=== PATIENT | female | born 1935 | race Hispanic/Latino ===

== ENCOUNTER 2018-03-19 15:53 | Inpatient (IN) | payer BC, MEDICARE, OTHER ==
--- NOTE | 2018-03-19 16:51 | C.PDOC ---
History Of Present Illness 83-year-old female, presents to the emergency department requesting detox from Oxycodone. Patient states she is on the medication for chronic pain and wants to detox from it. She denies fever, nausea/vomiting, or any other associated symptoms. No other complaints at this time. Time Seen by Provider: 03/19/18 16:33 History Per: Patient History/Exam Limitations: no limitations Past Medical History Reviewed: Historical Data, Nursing Documentation, Vital Signs - Medical History PMH: Back Problems Denies: Chronic Kidney Disease Family History: States: No Known Family Hx - Social History Hx Alcohol Use: No Hx Substance Use: No Review Of Systems Constitutional: Negative for: Fever Cardiovascular: Negative for: Chest Pain Respiratory: Negative for: Shortness of Breath Gastrointestinal: Negative for: Nausea, Vomiting Skin: Negative for: Rash Psych: Negative for: Depression, Suicidal ideation Physical Exam - Physical Exam Appears: Non-toxic, No Acute Distress Skin: Warm, Dry, No Rash Head: Atraumatic, Normacephalic Eye(s): bilateral: Normal Inspection Nose: Normal Oral Mucosa: Moist Lips: Normal Appearing Neck: Normal ROM Cardiovascular: Rhythm Regular, No Murmur Respiratory: Normal Breath Sounds, No Accessory Muscle Use Gastrointestinal/Abdominal: Soft, No Tenderness Extremity: Normal ROM, No Deformity Neurological/Psych: Oriented x3, Normal Speech ED Course And Treatment - Laboratory Results Result Diagrams: 03/19/18 17:42 03/19/18 17:42 ECG Rhythm: Atrial Fibrillation Rate From EC O2 Sat by Pulse Oximetry: 94 Pulse Ox Interpretation: Abnormal Medical Decision Making Medical Decision Making: no medical complaint h/lisa afib. medically clear. Disposition - Disposition Disposition: HOSPITALIZED Disposition Time: 19:04 Condition: STABLE - Clinical Impression Clinical Impression: Opiate use, Opiate addiction - Scribe Statement The provider has reviewed the documentation as recorded by the Scribe (Krishna Wiggins) Provider Attestation: All medical record entries made by the Scribe were at my direction and personally dictated by me. I have reviewed the chart and agree that the record accurately reflects my personal performance of the history, physical exam, medical decision making, and the department course for this patient. I have also personally directed, reviewed, and agree with the discharge instructions and disposition. Decision To Admit - Pt Status Changed To: Hospital Disposition Of: Inpatient - Admit Certification Admit to Inpatient:: After my assessment, the patient will require hospitalization for at least two midnights. This is because of the severity of symptoms shown, intensity of services needed, and/or the medical risk in this patient being treated as an outpatient. - InPatient: Physician Admission Certification: I certify that this patient requires 2 or more midnights of care for the following reason:: needs detox - . Bed Request Type: Detox Admitting Physician: Bharathi Michelle Patient Diagnosis: Opiate use, Opiate addiction
[2018-03-19 17:50] LABS: BASO # 0.1 K/uL (0.0-0.2); BASO % 0.9 % (0.0-2.0); EOS # 0.2 K/uL (0.0-0.7); EOS % 1.9 % (0.0-4.0); HEMOGLOBIN 16.3 g/dL (11.0-16.0); LYMPH # 1.7 K/uL (1.0-4.3); LYMPH % 16.6 % (20.0-40.0); MEAN CELL VOLUME 88.5 fL (81.0-99.0); MEAN CORPUSCULAR HEMOGLOBIN 29.5 pg (27.0-31.0); MEAN CORPUSCULAR HGB CONC 33.3 g/dL (33.0-37.0); MEAN PLATELET VOLUME 8.4 fL (7.2-11.7); MONO # 0.6 K/uL (0.0-0.8); MONO % 5.9 % (0.0-10.0); NEUT # 7.8 K/uL (1.8-7.0); NEUT % 74.7 % (50.0-75.0); NRBC % 0.1 % (0.0-2.0); RBC 5.54 Mil/uL (3.80-5.20); RED CELL DISTRIBUTION WIDTH 15.5 % (11.5-14.5); WHITE BLOOD COUNT 10.4 K/uL (4.8-10.8)
[2018-03-19 17:55] LABS: SQUAMOUS EPITHIAL < 1 /hpf (0-5); URINE BILIRUBIN NEGATIVE (NEGATIVE); URINE BLOOD NEGATIVE (NEGATIVE); URINE CLARITY Clear (Clear); URINE COLOR Yellow (YELLOW); URINE GLUCOSE (UA) NORMAL (Normal); URINE LEUKOCYTE ESTERASE NEG Leu/uL (Negative); URINE PROTEIN NEGATIVE (NEGATIVE); URINE UROBILINOGEN NORMAL mg/dL (0.2-1.0)
[2018-03-19 18:08] LABS: BARBITURATES, UR NEGATIVE (NEGATIVE); PHENCYCLIDINE, UR NEGATIVE (NEGATIVE)
[2018-03-19 18:11] LABS: ALB/GLOB RATIO 1.3 (1.0-2.1); ALBUMIN 4.7 g/dL (3.5-5.0); ALT/SGPT 27 U/L (9-52); AST/SGOT 43 U/L (14-36); BLOOD UREA NITROGEN 13 mg/dL (7-17); CALCIUM 9.6 mg/dl (8.6-10.4); GFR NON-AFRICAN AMERICAN > 60
[2018-03-19 18:27] LABS: BENZODIAZEPINES, UR POSITIVE (NEGATIVE); OPIATES, UR POSITIVE (NEGATIVE)
--- NOTE | 2018-03-19 19:31 | PCM.BM ---
<RasheedcemDago ontiveros - Last Filed: 03/19/18 19:30> Treatment Plan Problems - Problems identified on initial assessmt potential for opiate withdrawal Date Initiated: 03/19/18 Time Initiated: 19:31 Status: Active Treatment assets and liabiliti Patient Assests: adapts well Patient Liabilities: substance abuse, medical problems - Milieu Protocol Maintain good personal hygiene: daily Encourage regular showers, daily Remind patient to perform daily oral care, daily Assist patient to perform ADL's Conduct patient checks and document Observation sheet: Q15 minutes Maintain personal safety: every shift Educate patient to report safety concerns to staff, every shift Monitor environment for contraband/sharps Medication safety: Monitor for expected outcome, potential side effects: every shift, Assess barriers to learning: every shift, Assess readiness for medication education: every shift <Bharathi Michelle - Last Filed: 03/20/18 08:41> - Diagnosis (1) Opiate addiction Status: Acute Interventions: 03/20/18 08:41 * Assess 7x/week regarding severity of withdrawal * Educate regarding risks, benefits, side effects and alternatives of medications * Use Motivational Interviewing for abstinence * Use CBT for relapse prevention * Medication management for withdrawal symptoms * Encourage medication assisted treatment * <Jennifer Arevalo - Last Filed: 03/24/18 13:40> Family Contact Family contact name: daughter and granddaughter Family contacted how many times per week?: 4 Family contact comment: "She needs to have a homemaker when she gets out..." - Goals for Treatment Patient goals for treatment: Compete detox and transition to the care of a psychiatrist who will manage her medications. Discharge/Continuing Care - Education Needs Education Needs: Family Medication, Family Diagnosis/Disease Process, Family Community resources (homemaker services), Patient Medication, Patient Diagnosis/Disease Process, Patient Coping Skills, Patient Community resources - Discharge Discharge Criteria: Free of agitation, Normal sleep pattern, No longer exhibiting s/s of withdrawal, Reduction of target symptoms Discharge to:: Home, With Family - Treatment Team Participation Patient/Family/SO Statement: 03/24/18 13:39 "I'm not afraid of living alone. I'm afraid of my medication situation..." Discussed with Family/SO: Yes Was Patient/Family/SO present at Treatment Team Meeting: Yes
[2018-03-19] MEDS ORDERED: Aluminum Hydroxide/Magnesium Hydroxide Susp (30 mL) PO PRN (21:14)
--- NOTE | 2018-03-20 08:41 | PCM.PSYCH ---
Initial Psychiatric Evaluation - Initial Psychiatric Evaluation Type of Admission: Voluntary Legal Status: Capacity Chief Complaint (in patient's own words): "I had to stop my pain meds" History of Present Illness and Precipitating Events: Pt is seen, chart reviewed and case discussed. Agriculture Technician also spoke to her PCP, Dr. Demetrius Stahl, withher permission. Pt is an 83 year old female who lives alone and is in contact with her daughters with a history of chronic pain, sciatica, atrial fibrillation who presented to the ED requesting detox from oxycodone that she was taking for her chronic pain. She reports taking 3 x 30mg oxycodone every day for the last 15 years. She has overused it at times and admits to getting into withdrawals. Her PCP recommended detox and he is thinking about using stronger NSAID or suboxone for her pain. She was getting anxious and suffering from anxiety attacks brought on by withdrawal from oxycodone so has been concurrently taking diazepam 2-4 mg/d. She has never been to detox or rehab in the past. Patient has no previous psychiatric admissions or illnesses. She admits thoughts of wishing to but has no plans; mood is depressed mood, anhedonia, low energy, eating poorly, irritability. She says she has been trying to get a psychiatrist for a long time. Medical hx: Atrial fibrillation, back pain, sciatica Allergy: Denies Surg: Broken tibia, 1x section Hosp: A fib, broken tibia, Fam hx: Denies Current Medications: Active Medications Generic Name Dose Route Start Last Admin Trade Name Freq PRN Reason Stop Dose Admin Al Hydrox/Mg Hydrox/Simethicone 30 ml 03/19/18 21:14 Maalox 30 Ml PO TID PRN Indigestion / Heartburn Apixaban 5 mg 03/20/18 10:00 Eliquis PO BID JOSH Clonidine HCl 0.1 mg 03/19/18 21:14 03/19/18 21:34 Catapres PO 0.1 mg Q8 PRN Administration COWS Score More or Equal to 5 Cyproheptadine HCl 4 mg 03/19/18 21:15 03/19/18 21:34 Periactin PO 4 mg BID JOSH Administration Ibuprofen 600 mg 03/20/18 00:54 03/20/18 01:02 Motrin Tab PO 600 mg Q6 PRN Administration Pain, moderate (4-7) Loperamide HCl 2 mg 03/19/18 21:14 Imodium PO Q8 PRN Diarrhea Mirtazapine 15 mg 03/19/18 22:00 03/19/18 21:34 Remeron PO 15 mg HS JOSH Administration Ondansetron HCl 4 mg 03/19/18 21:14 Zofran Tab PO Q8 PRN Nausea/Vomiting Past Psychiatric History - Past Psychiatric History Previous Treatment History: Intensive Outpatient Pertinent Medical Hx (Current Medical&Sleep Prob, Allergies): Allergies Allergy/AdvReac Type Severity Reaction Status Date / Time No Known Allergies Allergy Verified 01/31/15 17:00 Apixaban [Eliquis] 5 mg PO BID 03/19/18 Cyproheptadine [Cyproheptadine Hydrochloride] 4 mg PO BID 03/19/18 Metoprolol Tartrate 50 mg PO BID 03/19/18 Mirtazapine [Remeron] 15 mg PO DAILY 03/19/18 Oxycodone HCl [Oxycontin] 60 mg PO BID 03/19/18 Vit B12/Folic Acid/B6/Aa15 [Glycotrol Capsule] 1 each PO DAILY 03/19/18 Vit D3-Vit K/Berberine/Hops [Ostera Tablet] 1 each PO DAILY 03/19/18 Review of Systems - Neurological Neurological: Memory Loss, Tremor, Weakness - Psychiatric Psychiatric: Abnormal Sleep Pattern, Anhedonia, Anxiety, Depression, Difficulty Concentrating. absent: Hallucinations, Homicidal Ideation, Irritability, Paranoia, Suicidal Ideation Mental Status Examination - Personal Presentation Personal Presentation: Looks stated age - Affect Affect: Constricted - Motor Activity Motor Activity: Calm - Reliability in Providing Information Reliability in Providing Information: Good - Speech Speech: Organized - Mood Mood: Depressed, Anxious - Formal Thought Process Formal Thought Process: No Impairment - Cognitive Functions Orientation: Person, Place, Situation, Time Sensorium: Alert Attention/Concentration: Easily distracted Estimate of Intelligence: Average Judgement: Intact, as evidence by: Insight regarding need for hospitalization Memory: Recent intact, as evidence by: Ability to recall events of the day, Remote impaired as evidenced by: Inability to recall sig life events - Risk Risk: Withdrawal, Diminished functioning - Strength & Assets Inventory Strength & Assets Inventory: Family support, Cooperative - Limitations Limitations: Living alone, Other DSM 5 DX - DSM 5 DSM 5 Diagnosis: Opioid withdrawal opioid use d/o - severe Depressive d/o - unspecified MADHURI - Recommended/Plan of Treatment Treatment Recommendations and Plan of Treatment: Taper with methadone Gabapentin for augmentation: pain and anxiety Remeron for depression and insomnia As needed medications All risks, benefits and alternatives of the meds discussed, and the pt agreed and understood. Attend groups and activities Supportive therapy and psychoeducation DC for abstinence CBT for relapse prevention Encourage MAT Refer to rehab or IOP, and self-help groups Teach healthy lifestyle methods, i.e. diet, exercise, meditation 33 min Projected ELOS: 4-5 days Prognosis: good w treatment
--- NOTE | 2018-03-20 21:42 | CARD ---
APPROVED REPORT Date of service: 03/19/2018 EKG Measurement Heart [id number] <Conclusion> Atrial fibrillation with rapid ventricular response with premature ventricular or aberrantly conducted complexes Anteroseptal infarct, age undetermined Abnormal ECG
--- NOTE | 2018-03-21 14:41 | PCM.PYCHPN ---
Psychiatric Progress Note - Psychiatric Progress Note Patient seen today, length of contact: 18 min Patient Chief Complaint: "I have pain" Problems Identified/Issues Discussed: The pt is seen, chart reviewed, case discussed with staff. The pt is compliant with medications and reports no side-effects. Symptoms are improving but needs more time to stabilize. She is very anxious and c/o back pain despite meds Reassurance given with good effect. Her anxiety is triggering her pain a lot Support given, psycho-education provided. After care discussed. She will return to her PCP and get safe pain-killers Medication Change: Yes (detox changes daily) Medical Record Reviewed: Yes Mental Status Examination - Cognitive Function Orientation: Person, Place, Situation, Time Memory: Intact Attention: Poor Concentration: Poor Association: WNL Fund of Knowledge: WNL - Mood Mood: Depressed, Anxious - Affect Affect: Constricted - Speech Speech: Appropriate - Formal Thought Process Formal Thought Process: No Impairment - Suicidal Ideation Suicidal Ideation: No - Homicidal Ideation Homicidal Ideation: No Goal/Treatment Plan - Goal/Treatment Plan Need for Continued Stay: Discharge may exacerbated symptoms, Severe functional impairment Progress Toward Problem(s) and Goals/Treatment Plan: Taper with methadone Add valium for severe anxiety and muscle spasms Gabapentin for augmentation: pain and anxiety Remeron for depression and insomnia As needed medications All risks, benefits and alternatives of the meds discussed, and the pt agreed and understood. Attend groups and activities Supportive therapy and psychoeducation DC for abstinence CBT for relapse prevention Encourage MAT Refer to rehab or IOP, and self-help groups Teach healthy lifestyle methods, i.e. diet, exercise, meditation Estimated Date of D/C: 03/24/18
--- NOTE | 2018-03-22 21:58 | CP.PCM.CON ---
<Rosalie Junior - Last Filed: 03/22/18 21:37> History of Present Illness - History of Present Illness History of Present Illness: PGY-1 Medicine Consult Note for Dr. Roach Ms. Hogan is a 83 year old female PMH Afib on Eliquis, hypertension, chronic back pain, glaucoma admitted for detox from chronic oxycodone use. Medicine was consulted for incidental oxygen desaturation on vitals check. Throughout stay, oxygen saturation has fluctuated and dropped as low as 93% on room air. We were consulted since patient dropped to 90%. Patient states no change after being placed on 2L NC. Patient has no complaints, but does note she gets short of breath on a near daily basis in conjunction with her panic attacks. She works herself up worrying that her medications are ineffective, which causes her to become overwhelmed and have anxiety. She has had two recent medication changes two weeks ago by her PMD: diazepam 2-4mg po daily prn for anxiety and cyproheptadine 4mg po HS for loss of appetite. She cannot recognize if she has had any change in weight over the last few weeks. She states that she's also extremely lonely since her 's . She's in the process of making her daughter Mylene her power of traffic law attorney and doesn't feel comfortable making decisions of any kind, including medical. Denies fever, chills, cough, shortness of breath, wheeze, sick contacts. PMH: Afib on Eliquis, HTN, chronic back pain, glaucoma, anxiety Meds: Eliquis, Lopressor, Oxycodone 3x30mg/d [id number], Diazepam, Cyproheptadine All: NKDA FamHx: Tobacco on both sides, denies asthma/COPD/Lung CA SocHx: Quit Tobacco 12 years ago, smoked 1/2 ppd. Denies EtOH, drug use aside from oxycodone SxHx: Broken Tibia repair, Full Code Review of Systems - Constitutional Constitutional: Lethargy, Malaise, Weakness. absent: Chills, Fever, Headache, Night Sweats, Sleep Apnea - EENT Eyes: absent: Blurred Vision, Diplopia, Loss of Vision Ears: absent: Decreased Hearing, Tinnitus, Disequilibrium Nose/Mouth/Throat: absent: Dysphagia, Hoarsness, Odynophagia - Cardiovascular Cardiovascular: absent: Chest Pain, Dyspnea, Irregular Heart Rhythm, Palpitations - Respiratory Respiratory: absent: Cough, Dyspnea, Wheezing, Chest Congestion - Gastrointestinal Gastrointestinal: absent: Constipation, Dysphagia, Heartburn, Nausea, O dynophagia, Vomiting - Genitourinary Genitourinary: absent: Dysuria, Urinary Frequency, Urinary Hesitance, Urinary Urgency - Musculoskeletal Musculoskeletal: Back Pain. absent: Neck Pain, Numbness, Stiffness, Tingling - Integumentary Integumentary: absent: Bleeding Lesions, Pruritus, Rash, Sores - Neurological Neurological: Weakness. absent: Dizziness, Focal Weakness - Psychiatric Psychiatric: Change in Appetite, Panic Attacks. absent: Hallucinations, Mood Swings - Endocrine Endocrine: Fatigue. absent: Excessive Sweating, Palpitations - Hematologic/Lymphatic Hematologic: absent: Easy Bleeding, Easy Bruising Past Patient History - Past Medical History & Family History Past Medical History?: Yes Past Family History: Reviewed and not pertinent - Past Social History Smoking Status: Former Smoker Alcohol: None Drugs: Prescription medications - CARDIAC Hx Hypertension: Yes - PULMONARY Hx Tuberculosis: No - NEUROLOGICAL HX Cerebrovascular Accident: No Hx Seizures: No - HEENT Hx Cataracts: Yes Hx Glaucoma: Yes - RENAL Hx Chronic Kidney Disease: No - ENDOCRINE/METABOLIC Hx Endocrine Disorders: No - HEMATOLOGICAL/ONCOLOGICAL Hx Blood Disorders: No - INTEGUMENTARY Hx Dermatological Problems: No - MUSCULOSKELETAL/RHEUMATOLOGICAL Hx Back Pain: Yes Hx Falls: Yes Hx Unsteady Gait: Yes - GENITOURINARY/GYNECOLOGICAL Hx Sexually Transmitted Disorders: No - PSYCHIATRIC Hx Substance Use: Yes - SURGICAL HISTORY Hx Section: Yes Hx Orthopedic Surgery: Yes - ANESTHESIA Hx Anesthesia: Yes Hx Anesthesia Reactions: No Hx Malignant Hyperthermia: No Meds Allergies/Adverse Reactions: Allergies Allergy/AdvReac Type Severity Reaction Status Date / Time No Known Allergies Allergy Verified 01/31/15 17:00 - Medications Medications: Current Medications Acetaminophen (Tylenol 325mg Tab) 325 mg PO Q6 PRN PRN Reason: Pain, moderate (4-7) Last Admin: 03/22/18 10:41 Dose: 325 mg Al Hydrox/Mg Hydrox/Simethicone (Maalox 30 Ml) 30 ml PO TID PRN PRN Reason: Indigestion / Heartburn Apixaban (Eliquis) 5 mg PO BID JOSH Last Admin: 03/22/18 17:20 Dose: 5 mg Clonidine HCl (Catapres) 0.1 mg PO Q8 PRN PRN Reason: COWS Score More or Equal to 5 Last Admin: 03/22/18 04:44 Dose: 0.1 mg Cyclobenzaprine HCl (Flexeril) 5 mg PO BID [facility] Last Admin: 03/22/18 17:19 Dose: 5 mg Cyproheptadine HCl (Periactin) 4 mg PO HS [facility] Last Admin: 03/22/18 21:20 Dose: 4 mg Diazepam (Valium) 5 mg PO QPM [facility] Last Admin: 03/22/18 17:20 Dose: 5 mg Gabapentin (Neurontin) 100 mg PO BID [facility] Last Admin: 03/22/18 17:20 Dose: 100 mg Ibuprofen (Motrin Tab) 600 mg PO Q6 PRN PRN Reason: Pain, moderate (4-7) Last Admin: 03/22/18 05:32 Dose: 600 mg Loperamide HCl (Imodium) 2 mg PO Q8 PRN PRN Reason: Diarrhea Methadone HCl (Methadone) 10 mg PO Q24H [facility]; Taper Stop: 03/25/18 09:59 Last Admin: 03/22/18 09:03 Dose: 10 mg Metoprolol Tartrate (Lopressor) 50 mg PO BID [facility] Last Admin: 03/22/18 17:20 Dose: 50 mg Mirtazapine (Remeron) 15 mg PO [facility] Last Admin: 03/22/18 21:20 Dose: 15 mg Ondansetron HCl (Zofran Tab) 4 mg PO Q8 PRN PRN Reason: Nausea/Vomiting Physical Exam - Constitutional Appears: Well, No Acute Distress, Chronically Ill - Head Exam Head Exam: ATRAUMATIC, NORMOCEPHALIC - Eye Exam Eye Exam: EOMI, PERRL Pupil Exam: NORMAL ACCOMODATION - ENT Exam ENT Exam: Mucous Membranes Dry, Normal Exam - Respiratory Exam Respiratory Exam: Clear to Auscultation Bilateral, NORMAL BREATHING PATTERN. absent: Accessory Muscle Use, Decreased Breath Sounds, Rales, Rhonchi, Wheezes Additional comments: 2L O2 NC patient is taking shallow breaths while in position. When she relaxes and takes deep breaths, her saturation reading improves - Cardiovascular Exam Cardiovascular Exam: +S1, +S2. absent: Gallop, Rubs, Systolic Murmur - GI/Abdominal Exam GI & Abdominal Exam: Normal Bowel Sounds, Soft. absent: Tenderness - Extremities Exam Extremities exam: Positive for: normal capillary refill, pedal pulses present. Negative for: calf tenderness, pedal edema, tenderness Additional comments: warm to touch peripheral pulses palpable bilaterally (radial, PT) - Neurological Exam Neurological exam: Alert, Oriented x3, Reflexes Normal Additional comments: brachioradialis, patellar reflexes normal - Psychiatric Exam Psychiatric exam: Depressed - Skin Skin Exam: Dry, Intact, Normal Color, Warm Results - Vital Signs Recent Vital Signs: Last Vital Signs Temp 97.7 F 03/22/18 20:39 Pulse 70 03/22/18 20:39 Resp 20 03/22/18 20:39 BP 110/70 03/22/18 20:39 Pulse Ox 93 L 03/22/18 21:15 - Labs Result Diagrams: 03/19/18 17:42 03/19/18 17:42 Assessment & Plan - Assessment and Plan (Free Text) Assessment: 83yo F PMH Afib on Eliquis, chronic back pain on oxycodone, anxiety admitted to detox from oxycodone consulted for decreased oxygen saturation. Plan: Decreased Oxygen Saturation - patient is asymptomatic and has no complaints - f/u CXR - continue O2 via NC. Titrate to saturation >93%, so far at 2L - incentive spirometry q2h to increase lung volume - will sign off if CXR negative, please reconsult as necessary d/w Dr. Marley Junior - Date & Time Date: 03/22/18 Time: 21:30 <Ritesh Roach - Last Filed: 03/23/18 06:04> Meds - Medications Medications: Current Medications Acetaminophen (Tylenol 325mg Tab) 325 mg PO Q6 PRN PRN Reason: Pain, moderate (4-7) Last Admin: 03/23/18 03:48 Dose: 325 mg Al Hydrox/Mg Hydrox/Simethicone (Maalox 30 Ml) 30 ml PO TID PRN PRN Reason: Indigestion / Heartburn Apixaban (Eliquis) 5 mg PO BID JOSH Last Admin: 03/22/18 17:20 Dose: 5 mg Clonidine HCl (Catapres) 0.1 mg PO Q8 PRN PRN Reason: COWS Score More or Equal to 5 Last Admin: 03/22/18 04:44 Dose: 0.1 mg Cyclobenzaprine HCl (Flexeril) 5 mg PO BID [facility] Last Admin: 03/22/18 17:19 Dose: 5 mg Cyproheptadine HCl (Periactin) 4 mg PO HS [facility] Last Admin: 03/22/18 21:20 Dose: 4 mg Diazepam (Valium) 5 mg PO QPM [facility] Last Admin: 03/22/18 17:20 Dose: 5 mg Gabapentin (Neurontin) 100 mg PO BID [facility] Last Admin: 03/22/18 17:20 Dose: 100 mg Ibuprofen (Motrin Tab) 600 mg PO Q6 PRN PRN Reason: Pain, moderate (4-7) Last Admin: 03/23/18 02:35 Dose: 600 mg Loperamide HCl (Imodium) 2 mg PO Q8 PRN PRN Reason: Diarrhea Methadone HCl (Methadone) 10 mg PO Q24H [facility]; Taper Stop: 03/25/18 09:59 Last Admin: 03/22/18 09:03 Dose: 10 mg Metoprolol Tartrate (Lopressor) 50 mg PO BID [facility] Last Admin: 03/22/18 17:20 Dose: 50 mg Mirtazapine (Remeron) 15 mg PO HS [facility] Last Admin: 03/22/18 21:20 Dose: 15 mg Ondansetron HCl (Zofran Tab) 4 mg PO Q8 PRN PRN Reason: Nausea/Vomiting Results - Vital Signs Recent Vital Signs: Last Vital Signs Temp 98.2 F 03/23/18 05:40 Pulse 73 03/23/18 05:40 Resp 18 03/23/18 05:40 BP 139/82 03/23/18 05:40 Pulse Ox 95 03/23/18 05:40 - Labs Result Diagrams: 03/19/18 17:42 03/19/18 17:42 Assessment & Plan - Date & Time Date: 03/23/18 (I have seen and examined the patient. I agree with the findings and plan of care as documented by Dr. Junior. Patient in detox. Called to consult due oxygen desaturation at 90%. Responded well to oxygen via nasal canula. Stat CXR. Will follow up and adjust treatment if positive for signs and symptoms of CHF. Monitor for acute changes.) Time: 06:02 Attending/Attestation - Attestation I have personally seen and examined this patient.: Yes I have fully participated in the care of the patient.: Yes I have reviewed all pertinent clinical information: Yes
--- NOTE | 2018-03-23 15:44 | RAD ---
Date of service: 03/22/2018 HISTORY: SOB COMPARISON: No prior. FINDINGS: LUNGS: There appears to be very mild pulmonary venous congestive changes (questionably chronic compensated pulmonary edema/CHF). Elevation right hemidiaphragm with right basilar atelectasis. There may be underlying eventration right hemidiaphragm. PLEURA: No significant pleural effusion identified, no pneumothorax apparent. CARDIOVASCULAR: Mild aortic atherosclerotic calcification present. . Cardiomegaly OSSEOUS STRUCTURES: No significant abnormalities. VISUALIZED UPPER ABDOMEN: Normal. OTHER FINDINGS: None. IMPRESSION: Mild pulmonary venous congestive changes (questionably chronic compensated pulmonary edema/CHF). Elevation right hemidiaphragm with right basilar atelectasis. There may be underlying eventration right hemidiaphragm.
--- NOTE | 2018-03-23 20:00 | PCM.PYCHPN ---
Psychiatric Progress Note - Psychiatric Progress Note Patient seen today, length of contact: 18 min Patient Chief Complaint: I AM IN SO NUCH PAIN PT WAS SEEN AND EXAMINED SISCUSSED WITH STAFRF. A NSAID WAS CONSIDERED BUT PT IS ON ELIQUIS Problems Identified/Issues Discussed: SEE ABOVE Medical Problems: NOTHING ACUTE Diagnostic Results: REVIEWED DSM 5 Symptoms Update: ANHEDONIA ANERGY Medication Change: Yes (detox changes daily) Medical Record Reviewed: Yes Mental Status Examination - Cognitive Function Orientation: Person, Place, Situation Memory: Intact Attention: Poor Concentration: Poor Association: WNL Fund of Knowledge: WNL - Mood Mood: Depressed, Anxious - Speech Speech: Appropriate - Formal Thought Process Formal Thought Process: No Impairment - Suicidal Ideation Suicidal Ideation: No - Homicidal Ideation Homicidal Ideation: No Goal/Treatment Plan - Goal/Treatment Plan Need for Continued Stay: Remain at risks for inpatient hospitalization, Discharge may exacerbated symptoms, Severe functional impairment Progress Toward Problem(s) and Goals/Treatment Plan: OPIOID WITHDRAWAL;METHADONE TAPER OPIOID USE DISORDER CBT CO GROUP MILIEU AND RECREATIONAL THERAPY MADHURI VISTARIL WAS CONSIDERED Estimated Date of D/C: 03/24/18 - Smoking Cessation Smoking Cessation Initiated: No
--- NOTE | 2018-03-23 20:08 | PCM.PYCHPN ---
Psychiatric Progress Note - Psychiatric Progress Note Patient seen today, length of contact: 18 min Patient Chief Complaint: IF I GO HOME FEELING LIKE THIS I DON'T CARE WHO IS WITH ME I CANNOT DO THIS PT WAS SEEN AND EXAMINED DISCUSSED WITH STAFF PT IS EXTREMELY ANXIOUS Problems Identified/Issues Discussed: SEE ABOVE Medical Problems: NOTHING ACUTE Diagnostic Results: REVIEWED Medication Change: Yes (BUSPAR MRTHADONE VALIUM TAPER) Medical Record Reviewed: Yes Mental Status Examination - Cognitive Function Orientation: Person, Place Memory: Intact Attention: Poor Concentration: Poor Association: WNL - Mood Mood: Depressed, Anxious - Affect Affect: Constricted - Speech Speech: Appropriate - Formal Thought Process Formal Thought Process: No Impairment - Suicidal Ideation Suicidal Ideation: No - Homicidal Ideation Homicidal Ideation: No Goal/Treatment Plan - Goal/Treatment Plan Need for Continued Stay: Remain at risks for inpatient hospitalization, Discharge may exacerbated symptoms, Severe functional impairment Progress Toward Problem(s) and Goals/Treatment Plan: OPIOID WITHDRAWAL;METHADONE TAPER OPIOID USE DISORDER CBT AL GROUP MILIEU AND RECREATIONAL THERAPY MADHURI JORGE STARTED Estimated Date of D/C: 03/24/18 - Smoking Cessation Smoking Cessation Initiated: No
--- NOTE | 2018-03-24 13:49 | PCM.PYCHPN ---
Psychiatric Progress Note - Psychiatric Progress Note Patient seen today, length of contact: 19 min Patient Chief Complaint: "I am not well" Problems Identified/Issues Discussed: The pt is seen, chart reviewed, case discussed with staff. The pt is compliant with medications and reports no side-effects. Section Supervisor spoke to her PCP (Dr. Mcgrath at [phone]) and her daughter Mylene. The plan was to d/c her but she still has some withdrawal sxs and "severe pain" Support and reassurance given Methadone and Valium help but not all day sometimes Her daughter spoke to me more than 15 minutes, explaining her mother's stubbornness (refusing aides, help) and that pt was sending money to her other daughetr to help with mortgage but she could use that money for herself. Pt was denied for RISK PREVENTION ENGINEER or VNS by Medicare. PT is OK but pt is reluctant. Medication Change: Yes (BUSPAR MRTHADONE VALIUM TAPER) Medical Record Reviewed: Yes Mental Status Examination - Cognitive Function Orientation: Person, Place Memory: Intact Attention: Poor Concentration: Poor Association: WNL - Mood Mood: Depressed, Anxious - Affect Affect: Constricted - Speech Speech: Appropriate - Formal Thought Process Formal Thought Process: No Impairment - Suicidal Ideation Suicidal Ideation: No - Homicidal Ideation Homicidal Ideation: No Goal/Treatment Plan - Goal/Treatment Plan Need for Continued Stay: Remain at risks for inpatient hospitalization, Discharge may exacerbated symptoms, Severe functional impairment Progress Toward Problem(s) and Goals/Treatment Plan: Taper with methadone another day Valium for severe anxiety and muscle spasms Gabapentin for augmentation: pain and anxiety Remeron for depression and insomnia As needed medications All risks, benefits and alternatives of the meds discussed, and the pt agreed and understood. Attend groups and activities Supportive therapy and psychoeducation CO for abstinence CBT for relapse prevention Encourage MAT Refer to rehab or IOP, and self-help groups Teach healthy lifestyle methods, i.e. diet, exercise, meditation Estimated Date of D/C: 03/25/18 If changed, why: Still very sick
[2018-03-25 09:17] VITALS: O2SAT 95
--- NOTE | 2018-03-25 12:49 | PCM.PYCHDC ---
Mental Status Examination - Mental Status Examination Orientation: Person, Place, Situation, Time Memory: Impaired Mood: Anxious (extremely) Affect: Other (intense) Speech: Appropriate (loud at times) Attention: Poor Concentration: Poor Association: WNL Fund of Knowledge: WNL Formal Thought Process: Perservation Suicidal Ideation: No Current Homicidal Ideation?: No Discharge Summary - Discharge Note Consultations:: List each consultation separately and include: 1. Reason for request. 2. Findings. 3. Follow-up Summary of Hospital Course include:: 1. Description of specific treatment plan utilized for patients during their course of treatmen. 2. Summarize the time- course for resolution of acute symptoms and/or regressed behaviors. 3. Describe issues identified and worked on during hospitalization. 4. Describe medication utilized. 5. Describe medical problems identified and treated. 6. Reassessment of suicide risk Summary of Hospital Course: Pt is seen, chart reviewed and case discussed. Professor Of Journalism also spoke to her PCP, Dr. Demetrius Stahl, withher permission. Pt is an 83 year old female who lives alone and is in contact with her daughters with a history of chronic pain, sciatica, atrial fibrillation who presented to the ED requesting detox from oxycodone that she was taking for her chronic pain. She reports taking 3 x 30mg oxycodone every day for the last 15 years. She has overused it at times and admits to getting into withdrawals. Her PCP recommended detox and he is thinking about using stronger NSAID or suboxone for her pain. She was getting anxious and suffering from anxiety attacks brought on by withdrawal from oxycodone so has been concurrently taking diazepam 2-4 mg/d. She has never been to detox or rehab in the past. Patient has no previous psychiatric admissions or illnesses. She admits thoughts of wishing to but has no plans; mood is depressed mood, anhedonia, low energy, eating poorly, irritability. She says she has been trying to get a psychiatrist for a long time. Medical hx: Atrial fibrillation, back pain, sciatica Allergy: Denies Surg: Broken tibia, 1x section Hosp: A fib, broken tibia, Fam hx: Denies - Final Diagnosis (DSM 5) Condition upon Discharge: STABLE Disposition: HOME/ ROUTINE Follow-up Treatment Plan: See PCP on 03/27 Continue meds as instructed, do NOT overuse Stay away from non-rx opioids Get an aide daily to assist with meds and ADLs Use relaxation skills See therapist and psychiatrist in [place] 40 min Prescriptions/Medication Reconciliation: busPIRone [Buspar] 5 mg PO TID #90 tab Cyclobenzaprine [Flexeril] 5 mg PO BID #60 tab Cyproheptadine [Periactin] 4 mg PO BID #60 tab diaZEpam [Valium] 5 mg PO DAILY #10 tab Gabapentin [Neurontin] 300 mg PO BID #60 cap Ketorolac Tromethamine [Toradol] 10 mg PO DAILY PRN #4 tab PRN Reason: Pain, Severe (8-10) Mirtazapine [Remeron] 15 mg PO DAILY #30 tab
[2018-03-25 14:37] VITALS: BP 146/79; PULSE 80; RESP 20
[2018-03-25 14:40] VITALS: TEMP 97.9
== END 2018-03-25 15:51 | disposition home or self-care (01) | DRG 895 ==
LOC: C.ER 15:53 → C.7D 18:54
PROVIDERS: ADMIT Psychiatry & Neurology Psychiatry; ATTEND Psychiatry & Neurology Psychiatry
PROC: HZ2ZZZZ Detoxification Services for Substance Abuse Treatment (ICD-10-PCS; principal; 2018-03-19)
PROC: HZ52ZZZ Individual Psychotherapy for Substance Abuse Treatment, Cognitive-Behavioral (ICD-10-PCS; 2018-03-19)
PROC: HZ59ZZZ Individual Psychotherapy for Substance Abuse Treatment, Supportive (ICD-10-PCS; 2018-03-19)
PROC: HZ56ZZZ Individual Psychotherapy for Substance Abuse Treatment, Psychoeducation (ICD-10-PCS; 2018-03-19)
PROC: HZ42ZZZ Group Counseling for Substance Abuse Treatment, Cognitive-Behavioral (ICD-10-PCS; 2018-03-19)
PROC: HZ46ZZZ Group Counseling for Substance Abuse Treatment, Psychoeducation (ICD-10-PCS; 2018-03-19)
PROC: GZHZZZZ Group Psychotherapy (ICD-10-PCS; 2018-03-19)
PROC: GZ58ZZZ Individual Psychotherapy, Cognitive-Behavioral (ICD-10-PCS; 2018-03-19)
PROC: GZ56ZZZ Individual Psychotherapy, Supportive (ICD-10-PCS; 2018-03-19)
DX: F11.23 Opioid dependence with withdrawal (principal); F41.1 Generalized anxiety disorder; F41.0 Panic disorder [episodic paroxysmal anxiety]; F32.9 Major depressive disorder, single episode, unspecified; I10 Essential (primary) hypertension; I48.91 Unspecified atrial fibrillation; Z79.01 Long term (current) use of anticoagulants; Z87.891 Personal history of nicotine dependence; H40.9 Unspecified glaucoma; G89.29 Other chronic pain; G47.00 Insomnia, unspecified; M54.30 Sciatica, unspecified side